=== PATIENT | male | born 1950 | race Caucasian/White ===

== ENCOUNTER → 2016-12-12 | Outpatient (CLI) | payer MEDICARE ==
[~2016-12-12] MED LIST: ACET-1600 PO; CHOL20002 PO; CRAN300T PO; DILT120T3 PO; GLUC1TAB91 PO; HYDR-3240 PO; LORA10TA3 PO; LOVA20TA2 PO; LUTE20CA2 PO; MULT-84 PO; OMEP20TA62 PO; PHILLIPS COLON HEALT PO; PROP225T2 PO; RIVA20TA PO; SAW PALMETTO PO; SILO8CAP PO; VITA1TAB3 PO; VITAMIN B12 PO
== END | disposition home or self-care (01) ==
LOC: RAD 08:06
PROVIDERS: ATTEND Urology
DX: C61 Malignant neoplasm of prostate (principal); Z90.79 Acquired absence of other genital organ(s)
CPT/HCPCS: 74430

== ENCOUNTER → 2016-12-26 | Outpatient (CLI) | payer MEDICARE | END | disposition home or self-care (01) | LOC: RAD 08:21 | PROVIDERS: ATTEND Urology | DX: C61 Malignant neoplasm of prostate (principal); Z90.79 Acquired absence of other genital organ(s) | CPT/HCPCS: 74430 ==